=== PATIENT | female | born 1970 | race Caucasian/White ===

== ENCOUNTER 2018-08-31 09:32 | Inpatient (IN) | payer OTHER ==
[~2018-08-31] VITALS: Ht 175.3 cm; Wt 92.2 kg
[~2018-08-31 09:32] MED LIST: ALLO100 PO; CIPR500 PO; CYCL10 PO; Crutch1 EACH MISC; DELTASONE20 MG PO; FURO40 PO; HYDACE5 PO; HYDR1TAB94 PO; IBUP800; IBUP800 PO; LISHYD1012 PO; Norco 5-325 Ta1 EACH PO; OXYACE5T PO; POTCHL10ER PO
[2018-08-31] MEDS ORDERED: GABA600 PO (09:48)
[2018-08-31] MEDS ORDERED: VITAMIN B-121000 MCG PO (09:48)
[2018-08-31] MEDS ORDERED: PANT40 PO (09:50)
[2018-08-31] MEDS ORDERED: Metformin HCl1000 MG PO (09:51)
[2018-08-31] MEDS ORDERED: ATEN25 PO (09:51)
[2018-08-31] MEDS ORDERED: SILD25T PO (09:52)
[2018-08-31] MEDS ORDERED: PROC5 PO (09:53)
[2018-08-31] MEDS ORDERED: ONDA4ODT MM (09:53)
[2018-08-31] MEDS ORDERED: HYDR-86 PO (09:55)
[2018-08-31] MEDS ORDERED: DULO60 PO (09:56)
[2018-08-31] MEDS ORDERED: TOPI100 PO (09:56)
[2018-08-31 11:04] LABS: BASOPHILS ABSOLUTE AUTO 0.07 K/mm3 (0.00-0.23); BASOPHILS PERCENT AUTO 1 % (0-2); EOSINOPHILS ABSOLUTE AUTO 0.23 K/mm3 (0.00-0.68); EOSINOPHILS PERCENT AUTO 2 % (0-6); Hematocrit 47.6 % (33.0-51.0); Hemoglobin 15.9 g/dL (11.5-16.0); IMMATURE GRAN ABSOLUTE AUTO 0.09 K/mm3 (0.00-0.10); IMMATURE GRAN PERCENT AUTO 1 % (0-1); LYMPHOCYTES ABSOLUTE AUTO 2.53 K/mm3 (0.84-5.20); LYMPHOCYTES PERCENT AUTO 21 % (21-46); MONOCYTES ABSOLUTE AUTO 0.65 K/mm3 (0.16-1.47); MONOCYTES PERCENT AUTO 5 % (4-13); Mean Corpuscular HGB 31.8 pg (26.0-34.0); Mean Corpuscular HGB Conc 33.4 g/dL (31.5-36.5); Mean Corpuscular Volume 95 fL (80-100); NEUTROPHILS ABSOLUTE AUTO 8.58 K/mm3 (1.96-9.15); NEUTROPHILS PERCENT AUTO 71 % (41-73); Platelet Count 268 K/mm3 (150-400); RDW Standard Deviation 48.6 fL (35.1-46.3); White Blood Cell Count 12.15 K/mm3 (4.00-11.30)
[2018-08-31 11:24] LABS: Albumin, Blood 3.9 g/dL (3.4-5.0); Bilirubin, Total 0.8 mg/dL (0.1-1.0); Bun/Creatinine Ratio 9.1 (12.0-20.0); Calcium, Blood 9.1 mg/dL (8.5-10.1); Creatinine, Blood 7.04 mg/dL (0.40-1.00); Globulin, Blood 3.9 g/dL (2.2-4.0); Potassium, Blood 4.8 mmol/L (3.5-5.5); Total Protein, Blood 7.8 g/dL (6.4-8.2)
[2018-08-31] MEDS ORDERED: SPIR25 PO (13:13)
--- NOTE | 2018-08-31 15:18 | NUR ---
Patient allowed me to participate in her care on 08/31/18
[2018-08-31] MEDS ORDERED: [UNRECOGNIZED DRUG - OTHER] PO (18:05)
[2018-08-31 20:10] LABS: Appearance, Urine Cloudy (Clear); Blood, Urine 2+ (Neg); Color, Urine Amber (P-Yellow); Glucose Qualitative, Urine Neg (Neg); Ketones, Urine 1+ (Neg); Leukocyte Esterase, Urine 3+ (Neg); Nitrite, Urine Neg (Neg); Protein, Urine 3+ (Neg); Urobilinogen, Urine NORM (Normal)
[2018-08-31 20:13] LABS: Bilirubin, Urine 1+ (Neg)
--- NOTE | 2018-08-31 20:24 | NUR ---
ETYMOLOGY PROFESSOR AT BEDSIDE. US OF BLADDER REVEALS 216 ML. PT ABLE TO VOID 300 ML. POST VOID RESIDUAL IS 0 ML. URINALYSIS SENT TO LAB. PT REPORTS THIS IS THE FIRST VOID X3 DAYS.
[2018-08-31 20:27] LABS: Squamous Epithelial Cells Many /hpf (Few)
[2018-08-31 20:29] LABS: White Blood Cells, Urine 25-50 /hpf (0-5)
[2018-08-31 20:30] LABS: Bacteria Many /hpf
--- NOTE | 2018-08-31 21:58 | NUR ---
HYPOTENSION PT IS HYPOTENSIVE TONIGHT, LAST BP OF 88/55. PLACED CALLED TO HOSPITALIST. HOSPITALIST ORDERS TO CONT TO MONITOR, IF IT CONT TO DROP BOLUS MAY BECOME NECESSARY. PT CURRENTLY RECIEVING NS @ 150 ML/HR. WILL CHECK BP Q2H.
[2018-08-31 22:02] LABS: Adenovirus F 40/41 Not Detected (NOT DETECT); Astrovirus Not Detected (NOT DETECT); Campylobacter Sp Not Detected (NOT DETECT); Cryptosporidium Not Detected (NOT DETECT); Cyclospora Cayetanensis Not Detected (NOT DETECT); E. Coli O157 Not Detected (NOT DETECT); Entamoeba Histolytica Not Detected (NOT DETECT); Enteroaggregative E. coli-EAEC Not Detected (NOT DETECT); Enteropathogenic E. coli-EPEC Not Detected (NOT DETECT); Enterotoxigenic E. coli-ETEC Not Detected (NOT DETECT); Giardia Lamblia Not Detected (NOT DETECT); Norovirus GI/GII Not Detected (NOT DETECT); Plesiomonas Shigelloides Not Detected (NOT DETECT); Rotavirus A Not Detected (NOT DETECT); Salmonella Sp Not Detected (NOT DETECT); Sapovirus Not Detected (NOT DETECT); Shiga Toxin-prod E. coli-STEC Not Detected (NOT DETECT); Shigella/Enteroin E. coli-EIEC Not Detected (NOT DETECT); Vibrio Cholerae Not Detected (NOT DETECT); Vibrio Sp Not Detected (NOT DETECT); Yersinia Enterocolitica Not Detected (NOT DETECT)
[2018-09-01 05:31] LABS: BASOPHILS ABSOLUTE AUTO 0.04 K/mm3 (0.00-0.23); BASOPHILS PERCENT AUTO 1 % (0-2); EOSINOPHILS ABSOLUTE AUTO 0.17 K/mm3 (0.00-0.68); EOSINOPHILS PERCENT AUTO 2 % (0-6); Hemoglobin 12.5 g/dL (11.5-16.0); IMMATURE GRAN ABSOLUTE AUTO 0.06 K/mm3 (0.00-0.10); IMMATURE GRAN PERCENT AUTO 1 % (0-1); LYMPHOCYTES ABSOLUTE AUTO 2.39 K/mm3 (0.84-5.20); LYMPHOCYTES PERCENT AUTO 28 % (21-46); MONOCYTES ABSOLUTE AUTO 0.57 K/mm3 (0.16-1.47); MONOCYTES PERCENT AUTO 7 % (4-13); Mean Corpuscular HGB 31.6 pg (26.0-34.0); Mean Corpuscular HGB Conc 31.3 g/dL (31.5-36.5); Mean Platelet Volume 12.3 fL (9.1-12.4); NEUTROPHILS ABSOLUTE AUTO 5.26 K/mm3 (1.96-9.15); NEUTROPHILS PERCENT AUTO 62 % (41-73); Platelet Count 167 K/mm3 (150-400); RDW Coefficient Variation 14.1 % (11.7-14.2); RDW Standard Deviation 52.6 fL (35.1-46.3); Red Blood Cell Count 3.96 M/mm3 (3.80-5.20); White Blood Cell Count 8.49 K/mm3 (4.00-11.30)
[2018-09-01 05:40] LABS: Mean Corpuscular Volume 101 fL (80-100)
--- NOTE | 2018-09-01 06:34 | NUR ---
SHIFT SUMMARY: PT HAD ONE VOID TONIGHT, SHE STATES THIS IS HER FIRST VOID IN 3 DAYS. US AT BEDSIDE SHOWED BLADDER TO HAVE 216 ML PRIOR TO VOID. POST VOID RESIDUAL 0 ML. URINE DARK YELLOW, FOUL ODOR. URINALYSIS THIS AM SHOWS UTI. PT MEDS CHANGED TO MATCH HOME REGIMEN. STOOL SAMPLE SENT, LOOSE STOOLS C DIFF NEG. PT HYPOTENSIVE, MADE CALL TO HOSPITALIST WHO ORDERED 500 ML BOLUS. BP IMPROVED. NS RUNNING AT 150 ML/HR. WILL CONT TO MONITOR AND PROVIDE CARE UNTIL PRESUMED BY ONCOMING RN.
[2018-09-01 06:42] LABS: Anion Gap 16 mmol/L (6-16); Blood Urea Nitrogen 56 mg/dL (8-24); Bun/Creatinine Ratio 9.8 (12.0-20.0); CO2, Blood 14 mmol/L (21-32); Calcium, Blood 7.3 mg/dL (8.5-10.1); Chloride, Blood 106 mmol/L (98-108); Creatinine, Blood 5.73 mg/dL (0.40-1.00); Glomerular Filtration Rate 8 (60-); Glucose, Blood 91 mg/dL (70-99); Magnesium, Blood 1.5 mg/dL (1.6-2.4); Phosphorus, Blood 6.4 mg/dL (2.5-4.9); Potassium, Blood 4.4 mmol/L (3.5-5.5); Sodium, Blood 136 mmol/L (136-145)
--- NOTE | 2018-09-01 17:25 | NUR ---
SUMMARY PT IS A/O X4, STATE CONTINUING WEAKNESS/FATIGUE, NAUSEA. HAVE GIVEN IV ZOFRAN X 2 TODAY FOR NAUSEA RELIEF. SHE HAS BEEN ABLE TO EAT SM AMTS OF MEALS. DX ARF, DR MONTOYA MANAGING, GFR 8. IVF CHANGED TO 1/2 NS WITH BICARB @ 125. BP LOW THIS AM 105/69, THIS AFTERNOON 89/52. DR CUI NOTIFIED, ORDER INCREASE IVF TO 150/HR. DR MONTOYA SPOKE WITH PT DR Alicea [facility] WHO IS MANAGING PULM HTN, AFTER [facility]. DR CUI ORDER DAILY REPORTS FAXED TO DR Alicea [facility]. MG LOW TODAY, SUPPLEMENTS GIVEN. DIARRHEA CONTINUES. PT HAS HAD 2 URINE VOIDS, 1 UNMEASURED THE OTHER APPROX 600 ML. PLEASANT/COOPERATIVE AFFECT, SUPPORTIVE/APPRECIATIVE FAMILY.
--- NOTE | 2018-09-01 23:53 | NUR ---
PAIN PT C/O PAIN IN THE WRISTS AND JOINTS. PT STATES IT IS ACHEY AND HAS NEVER HAPPENED BEFORE. 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 TREATED 1X c PRN 7.5 MG HYDROCODONE. PT STILL STATES SHE IS WORRIED BUT WILLING TO SEE IF THE PAIN MED WILL HELP. WILL CONT TO MONITOR.
[2018-09-02 05:26] LABS: BASOPHILS ABSOLUTE AUTO 0.06 K/mm3 (0.00-0.23); BASOPHILS PERCENT AUTO 1 % (0-2); EOSINOPHILS ABSOLUTE AUTO 0.18 K/mm3 (0.00-0.68); EOSINOPHILS PERCENT AUTO 2 % (0-6); Hematocrit 40.3 % (33.0-51.0); IMMATURE GRAN ABSOLUTE AUTO 0.13 K/mm3 (0.00-0.10); IMMATURE GRAN PERCENT AUTO 1 % (0-1); LYMPHOCYTES ABSOLUTE AUTO 1.02 K/mm3 (0.84-5.20); LYMPHOCYTES PERCENT AUTO 10 % (21-46); MONOCYTES ABSOLUTE AUTO 0.71 K/mm3 (0.16-1.47); MONOCYTES PERCENT AUTO 7 % (4-13); Mean Corpuscular HGB 31.7 pg (26.0-34.0); Mean Corpuscular HGB Conc 32.3 g/dL (31.5-36.5); Mean Corpuscular Volume 98 fL (80-100); Mean Platelet Volume 11.9 fL (9.1-12.4); NEUTROPHILS ABSOLUTE AUTO 8.58 K/mm3 (1.96-9.15); NEUTROPHILS PERCENT AUTO 80 % (41-73); Platelet Count 159 K/mm3 (150-400); RDW Coefficient Variation 14.1 % (11.7-14.2); RDW Standard Deviation 50.8 fL (35.1-46.3); White Blood Cell Count 10.68 K/mm3 (4.00-11.30)
[2018-09-02 05:47] LABS: Albumin, Blood 2.9 g/dL (3.4-5.0); Anion Gap 12 mmol/L (6-16); Blood Urea Nitrogen 50 mg/dL (8-24); Bun/Creatinine Ratio 10.7 (12.0-20.0); CO2, Blood 21 mmol/L (21-32); Calcium, Blood 7.3 mg/dL (8.5-10.1); Chloride, Blood 102 mmol/L (98-108); Creatinine, Blood 4.69 mg/dL (0.40-1.00); Glomerular Filtration Rate 11 (60-); Glucose, Blood 131 mg/dL (70-99); Potassium, Blood 3.5 mmol/L (3.5-5.5); Sodium, Blood 135 mmol/L (136-145)
--- NOTE | 2018-09-02 06:32 | NUR ---
SHIFT SUMMARY: NO ACUTE CHANGES THIS SHIFT. PT IS A&O X 4, 1 PERS ASSIST TO BSC, CALL LIGHT APPROP. VOIDS 2X THIS SHIFT. PT HAS 1 UNMEASURED VOID, BLADDER SCAN UNREMARKABLE. C/O OF PAIN IN WRIST AND JOINTS THAT IS RESOLVED BY PRN HYDROCODONE. WILL CONT TO MONITOR AND PROVIDE CARE UNTIL PRESUMED BY ONCOMING RN.
--- NOTE | 2018-09-02 17:05 | NUR ---
SHE HAS RECEIVED FENTANYL X1 AND NORCO X1 TODAY FOR THE PAIN IN HER FEET, WRISTS, AND KNEES. SHE IS UP TO THE BSC WITH 1 ASSIST. SHE HAS HAD 1 LOOSE STOOL TODAY. HCO3 IV IS STILL INFUSING BUT HAD ME TURN IT DOWN TO 125ML/HR AT 9 AM THIS MORNING WHEN SHE ROUNDED ON THE PATIENT. SBP'S HAVE RANGED FROM 96 TO 87 TODAY. TELE IS NSR. PO KCL ELIXER GIVEN FOR LOW POTASSIUM LEVEL. NO NEW COMPLAINTS.
[2018-09-03 05:56] LABS: BASOPHILS ABSOLUTE AUTO 0.03 K/mm3 (0.00-0.23); BASOPHILS PERCENT AUTO 0 % (0-2); EOSINOPHILS ABSOLUTE AUTO 0.15 K/mm3 (0.00-0.68); EOSINOPHILS PERCENT AUTO 2 % (0-6); Hematocrit 32.1 % (33.0-51.0); Hemoglobin 10.3 g/dL (11.5-16.0); IMMATURE GRAN ABSOLUTE AUTO 0.04 K/mm3 (0.00-0.10); IMMATURE GRAN PERCENT AUTO 1 % (0-1); LYMPHOCYTES ABSOLUTE AUTO 1.03 K/mm3 (0.84-5.20); LYMPHOCYTES PERCENT AUTO 14 % (21-46); MONOCYTES ABSOLUTE AUTO 0.53 K/mm3 (0.16-1.47); MONOCYTES PERCENT AUTO 7 % (4-13); Mean Corpuscular HGB 31.5 pg (26.0-34.0); Mean Corpuscular HGB Conc 32.1 g/dL (31.5-36.5); Mean Corpuscular Volume 98 fL (80-100); Mean Platelet Volume 11.9 fL (9.1-12.4); NEUTROPHILS ABSOLUTE AUTO 5.73 K/mm3 (1.96-9.15); NEUTROPHILS PERCENT AUTO 76 % (41-73); Platelet Count 111 K/mm3 (150-400); RDW Coefficient Variation 14.3 % (11.7-14.2); RDW Standard Deviation 50.5 fL (35.1-46.3); Red Blood Cell Count 3.27 M/mm3 (3.80-5.20); White Blood Cell Count 7.51 K/mm3 (4.00-11.30)
[2018-09-03 06:09] LABS: Albumin, Blood 2.6 g/dL (3.4-5.0); Anion Gap 11 mmol/L (6-16); Blood Urea Nitrogen 35 mg/dL (8-24); CO2, Blood 21 mmol/L (21-32); Calcium, Blood 6.8 mg/dL (8.5-10.1); Chloride, Blood 104 mmol/L (98-108); Glomerular Filtration Rate 20 (60-); Glucose, Blood 114 mg/dL (70-99); Phosphorus, Blood 3.1 mg/dL (2.5-4.9); Potassium, Blood 3.9 mmol/L (3.5-5.5); Sodium, Blood 136 mmol/L (136-145)
--- NOTE | 2018-09-03 06:35 | NUR ---
SHIFT SUMMARY: NO ACUTE CHANGES TONIGHT. NEW IV PLACED; 20 G IN R WRIST. NA+ BICARB RUNNING AT 125 ML/HR PER ORDERS. PT C/O OF WRIST AND JOINT PAIN; ADMINISTERED PRN NORCO. NO COV INDICATED FOR INSULIN. WILL CONT TO MONITOR AND PROVIDE CARE UNTIL PRESUMED BY ONCOMING RN.
--- NOTE | 2018-09-03 17:10 | NUR ---
PT AOX4 AND COOPERATIVE OF CARE. PT HAS HAD TWO VOIDS TODAY AND HER GFR CONTINUES TO IMPROVE. PT 1 PERSON ASSIST TO BEDSIDE COMODE.NS FLUIDS CONTINUED AT 50ML PER HR. TREATED PAIN OF WRISTS AND JOINTS PER EMAR. PLEASANT NO DISTRESS NOTED.
--- NOTE | 2018-09-03 18:16 | NUR ---
PT HAD A BOUT OF NAUSEA AND VOMITING. PCU FINISHER PLATE CALLED PT'S HR WAS UP TO 132. IMMEDIATELY TREATED WITH REGLAN. PT CALMED DOWN AND STOPPED GETTING SICK. CALLED PCU TECH AND PT'S HR WAS 121 15 MIN AFTER REGLAN DOSE. PT IS SLEEPING AT THIS TIME WITH CONITUE TO MONITOR.
--- NOTE | 2018-09-03 18:33 | NUR ---
PCU NOTFIED THIS ASSISTANT SOFTBALL COACH PT CONTINUES TO HAVE FAST HR REPORTS AT [address] CHRISTENSEN WAS NOTIFIED AND HAS REQUESTED PT TO BE MONITORED, NO CHANGES AT THIS TIME.
--- NOTE | 2018-09-04 06:49 | NUR ---
09/04/18 0640 PT AWAKE AND WATCHING TV. SPENT THE NIGHT. SLEPT ON AND OFF AND WAS MEDICATED SEVERAL TIMES FOR DISCOMFORT PER MAR. VITALS ARE STABLE AND HEART MONITOR STABLE WITH HEART RATE IN 90-LOW 100'S. DENIES ANY CHEST DISCOMFORT OR NAUSEA THIS SHIFT
[2018-09-04 08:29] LABS: BASOPHILS ABSOLUTE AUTO 0.03 K/mm3 (0.00-0.23); BASOPHILS PERCENT AUTO 0 % (0-2); EOSINOPHILS ABSOLUTE AUTO 0.16 K/mm3 (0.00-0.68); EOSINOPHILS PERCENT AUTO 2 % (0-6); Hematocrit 33.2 % (33.0-51.0); Hemoglobin 10.9 g/dL (11.5-16.0); IMMATURE GRAN ABSOLUTE AUTO 0.05 K/mm3 (0.00-0.10); IMMATURE GRAN PERCENT AUTO 1 % (0-1); LYMPHOCYTES ABSOLUTE AUTO 1.44 K/mm3 (0.84-5.20); LYMPHOCYTES PERCENT AUTO 20 % (21-46); MONOCYTES ABSOLUTE AUTO 0.54 K/mm3 (0.16-1.47); MONOCYTES PERCENT AUTO 8 % (4-13); Mean Corpuscular HGB 31.5 pg (26.0-34.0); Mean Corpuscular HGB Conc 32.8 g/dL (31.5-36.5); Mean Corpuscular Volume 96 fL (80-100); Mean Platelet Volume 12.6 fL (9.1-12.4); NEUTROPHILS ABSOLUTE AUTO 4.87 K/mm3 (1.96-9.15); NEUTROPHILS PERCENT AUTO 69 % (41-73); Platelet Count 113 K/mm3 (150-400); RDW Coefficient Variation 14.3 % (11.7-14.2); RDW Standard Deviation 50.2 fL (35.1-46.3); Red Blood Cell Count 3.46 M/mm3 (3.80-5.20); White Blood Cell Count 7.09 K/mm3 (4.00-11.30)
[2018-09-04 08:43] LABS: Bun/Creatinine Ratio 13.3 (12.0-20.0); Calcium, Blood 6.9 mg/dL (8.5-10.1); Creatinine, Blood 2.18 mg/dL (0.40-1.00); Potassium, Blood 3.2 mmol/L (3.5-5.5)
[2018-09-04 08:47] LABS: Magnesium, Blood 1.1 mg/dL (1.6-2.4)
[2018-09-04] MEDS ORDERED: MAGOXI400 PO (14:32)
[2018-09-04] MEDS ORDERED: SACC250C PO (14:33)
--- NOTE | 2018-09-04 15:00 | NUR ---
PT AOX4 AND COOPERATIVE OF ALL CARE. PT DOING WELL TODAY. DISCHARGED AT 1455 WITH MOTHER TO TRANSPORT HOME. ALL PAPERS REVIEWED AND EDUCATIONAL MATERIAL SENT WITH PT. PERSONAL BELONGINGS COLLECTED AND WITH PT. NO DISTRESS NOTED AID ESCORTED PT VIA WHEEL CHAIR.
[2018-09-10 01:10] LABS: CK-BB 0 % (0); CK-MB 0 % (0-3); CK-MM 100 % (97-100); MACRO TYPE 1 0 % (Not Observed); MACRO TYPE 2 0 % (Not Observed)
== END 2018-09-04 14:55 | disposition home or self-care (01) | DRG 682 ==
LOC: ER 09:32 → MEDS 09:56
PROVIDERS: Emergency Medicine; Hospitalist; Internal Medicine; ADMIT Family Medicine
DX: N17.9 Acute kidney failure, unspecified (principal); E43 Unspecified severe protein-calorie malnutrition; E87.1 Hypo-osmolality and hyponatremia; E87.2 Acidosis; I27.20 Pulmonary hypertension, unspecified; I10 Essential (primary) hypertension; E86.0 Dehydration; K52.9 Noninfective gastroenteritis and colitis, unspecified; F32.9 Major depressive disorder, single episode, unspecified; F41.9 Anxiety disorder, unspecified; N18.3 Chronic kidney disease, stage 3 (moderate); E11.40 Type 2 diabetes mellitus with diabetic neuropathy, unspecified; E11.22 Type 2 diabetes mellitus with diabetic chronic kidney disease; K21.9 Gastro-esophageal reflux disease without esophagitis; M10.9 Gout, unspecified; E83.42 Hypomagnesemia; Z88.2 Allergy status to sulfonamides; Z88.8 Allergy status to other drugs, medicaments and biological substances; Z79.84 Long term (current) use of oral hypoglycemic drugs; Z79.899 Other long term (current) drug therapy; Z87.891 Personal history of nicotine dependence
CPT/HCPCS: 36415; 76770; 80048; 80053; 80069; 81001; 82550; 82552; 82947; 83605; 83690; 83735; 85025; 87086; 87507; 93005; 93010; 96360; 96361; 96372; 96375; 96376; 99285-25; C9113; G0378; J1650; J2405; J2765; J3010; J3475; J7030; J7040

== ENCOUNTER 2019-10-01 17:17 | Emergency (ER) | payer OTHER ==
[~2019-10-01] VITALS: Ht 172.7 cm; Wt 101.6 kg
[~2019-10-01 17:17] MED LIST changes: +ATEN25 PO; +DULO60 PO; +GABA300 PO; +HYDR-86 PO; +MAGOXI400 PO; +Metformin HCl1000 MG PO; +ONDA4ODT MM; +PANT40 PO; +PROC5 PO; +SACC250C PO; +SILD25T PO; +SPIR25 PO; +TOPI100 PO; +VITAMIN B-121000 MCG PO; +[UNRECOGNIZED DRUG - OTHER] PO
[2019-10-01 18:02] LABS: Influenza A Negative (NEGATIVE); Influenza B Negative (NEGATIVE)
[2019-10-01 18:47] LABS: BASOPHILS ABSOLUTE AUTO 0.07 K/mm3 (0.00-0.23); BASOPHILS PERCENT AUTO 1 % (0-2); EOSINOPHILS ABSOLUTE AUTO 0.51 K/mm3 (0.00-0.68); EOSINOPHILS PERCENT AUTO 4 % (0-6); Hematocrit 42.9 % (33.0-51.0); Hemoglobin 13.5 g/dL (11.5-16.0); IMMATURE GRAN ABSOLUTE AUTO 0.07 K/mm3 (0.00-0.10); IMMATURE GRAN PERCENT AUTO 1 % (0-1); LYMPHOCYTES ABSOLUTE AUTO 1.82 K/mm3 (0.84-5.20); LYMPHOCYTES PERCENT AUTO 16 % (21-46); MONOCYTES ABSOLUTE AUTO 0.66 K/mm3 (0.16-1.47); MONOCYTES PERCENT AUTO 6 % (4-13); Mean Corpuscular HGB 30.4 pg (26.0-34.0); Mean Corpuscular HGB Conc 31.5 g/dL (31.5-36.5); Mean Corpuscular Volume 97 fL (80-100); Mean Platelet Volume 10.7 fL (9.1-12.4); NEUTROPHILS ABSOLUTE AUTO 8.46 K/mm3 (1.96-9.15); NEUTROPHILS PERCENT AUTO 73 % (41-73); Platelet Count 195 K/mm3 (150-400); RDW Standard Deviation 53.3 fL (35.1-46.3); Red Blood Cell Count 4.44 M/mm3 (3.80-5.20); White Blood Cell Count 11.59 K/mm3 (4.00-11.30)
[2019-10-01 19:13] LABS: Alanine Aminotransfer (ALT/SGP 12 U/L (12-78); Albumin, Blood 3.6 g/dL (3.4-5.0); Alk Phos 108 U/L (50-136); Anion Gap 6 mmol/L (6-16); Aspartate Aminotrans (AST/SGOT 12 U/L (12-37); Bilirubin, Total 0.5 mg/dL (0.1-1.0); Blood Urea Nitrogen 14 mg/dL (8-24); Bun/Creatinine Ratio 15.7 (12.0-20.0); CO2, Blood 27 mmol/L (21-32); Calcium, Blood 8.8 mg/dL (8.5-10.1); Chloride, Blood 105 mmol/L (98-108); Creatinine, Blood 0.89 mg/dL (0.40-1.00); Globulin, Blood 3.5 g/dL (2.2-4.0); Glomerular Filtration Rate >60 (60-); Glucose, Blood 181 mg/dL (70-99); Potassium, Blood 4.2 mmol/L (3.5-5.5); Sodium, Blood 138 mmol/L (136-145); Total Protein, Blood 7.1 g/dL (6.4-8.2); Troponin I <0.015 ng/mL (0.000-0.040)
[2019-10-01] MEDS ORDERED: ORENITRAM PO (19:36)
[2019-10-01] MEDS ORDERED: FERSU300 PO (19:40)
[2019-10-01] MEDS ORDERED: OPSUMIT10 MG PO (19:41)
[2019-10-01] MEDS ORDERED: METF500 PO (19:41)
[2019-10-01] MEDS ORDERED: OXYC10TA19 PO (19:42)
[2019-10-01] MEDS ORDERED: ALBU90OI INH (19:42)
[2019-10-01] MEDS ORDERED: POTA10T PO (19:42)
[2019-10-01] MEDS ORDERED: Vitamin D2000 UNIT PO (19:43)
[2019-10-01] MEDS ORDERED: GUAI600T33 PO (21:17)
[2019-10-01] MEDS ORDERED: Vibramycin100 MG PO (21:17)
== END 2019-10-01 23:22 | disposition home or self-care (01) ==
LOC: ER 17:17
PROVIDERS: Physician Assistant
DX: J20.9 Acute bronchitis, unspecified (principal); E11.22 Type 2 diabetes mellitus with diabetic chronic kidney disease; E11.40 Type 2 diabetes mellitus with diabetic neuropathy, unspecified; I12.9 Hypertensive chronic kidney disease with stage 1 through stage 4 chronic kidney disease, or unspecified chronic kidney disease; N18.3 Chronic kidney disease, stage 3 (moderate); I27.20 Pulmonary hypertension, unspecified; F32.9 Major depressive disorder, single episode, unspecified; F41.9 Anxiety disorder, unspecified; K21.9 Gastro-esophageal reflux disease without esophagitis; M10.9 Gout, unspecified; Z87.891 Personal history of nicotine dependence; Z88.2 Allergy status to sulfonamides; Z88.6 Allergy status to analgesic agent; Z88.8 Allergy status to other drugs, medicaments and biological substances
CPT/HCPCS: 36415; 71046; 71250; 80053; 83605; 83880; 84484; 85025; 87804; 93005; 93010; 96361; 96365; 96366; 99284-25; J1956; J7030

== ENCOUNTER 2020-03-08 20:32 | Inpatient (IN) | payer OTHER ==
[~2020-03-08] VITALS: Ht 175.3 cm; Wt 98.6 kg
[~2020-03-08 20:32] MED LIST changes: +ACET325 PO; +ALBU90OI INH; +AMOCLA875 PO; +AMOX500 PO; +Acetic Acid15 ML BOTHEARS; +Carafate1 GM/10 ML PO; +FERSU300 PO; +FUROSEMIDE40 MG PO; -GABA300 PO; +GUAI600T33 PO; +MAGNESIUM OXID500 MG PO; +METF500 PO; +METFORMIN HCL1000 M2 PO; +MIRALAX17 GM PO; +NEURONTIN600 MG PO; +OPSUMIT10 MG PO; +ORENITRAM PO; +OXYC10TA19 PO; +POTA10T PO; +PROBIOTIC PO; +SENN187 PO; +VELETRI IV; +Vibramycin100 MG PO; +Vitamin D2000 UNIT PO; +[UNRECOGNIZED DRUG - CODE] PO; +[UNRECOGNIZED DRUG - OTHER] PO
[2020-03-08 22:18] LABS: BASOPHILS ABSOLUTE AUTO 0.04 K/mm3 (0.00-0.23); BASOPHILS PERCENT AUTO 1 % (0-2); EOSINOPHILS ABSOLUTE AUTO 0.18 K/mm3 (0.00-0.68); EOSINOPHILS PERCENT AUTO 3 % (0-6); Hematocrit 26.9 % (33.0-51.0); Hemoglobin 7.6 g/dL (11.5-16.0); IMMATURE GRAN ABSOLUTE AUTO 0.07 K/mm3 (0.00-0.10); IMMATURE GRAN PERCENT AUTO 1 % (0-1); LYMPHOCYTES ABSOLUTE AUTO 1.01 K/mm3 (0.84-5.20); LYMPHOCYTES PERCENT AUTO 16 % (21-46); MONOCYTES ABSOLUTE AUTO 0.34 K/mm3 (0.16-1.47); MONOCYTES PERCENT AUTO 5 % (4-13); Mean Corpuscular HGB Conc 28.3 g/dL (31.5-36.5); Mean Corpuscular Volume 82 fL (80-100); Mean Platelet Volume 11.1 fL (9.1-12.4); NEUTROPHILS ABSOLUTE AUTO 4.67 K/mm3 (1.96-9.15); NEUTROPHILS PERCENT AUTO 74 % (41-73); Platelet Count 97 K/mm3 (150-400); RDW Coefficient Variation 18.6 % (11.7-14.2); RDW Standard Deviation 55.1 fL (35.1-46.3); White Blood Cell Count 6.31 K/mm3 (4.00-11.30)
[2020-03-08 22:34] LABS: Albumin, Blood 3.1 g/dL (3.4-5.0); Albumin/Globulin Ratio 0.9 (0.8-1.8); Bilirubin, Total 0.7 mg/dL (0.1-1.0); Bun/Creatinine Ratio 6.6 (12.0-20.0); Calcium, Blood 8.5 mg/dL (8.5-10.1); Creatinine, Blood 1.06 mg/dL (0.40-1.00); Globulin, Blood 3.4 g/dL (2.2-4.0); Potassium, Blood 3.8 mmol/L (3.5-5.5); Total Protein, Blood 6.5 g/dL (6.4-8.2)
[2020-03-09 09:57] LABS: BASOPHILS ABSOLUTE AUTO 0.04 K/mm3 (0.00-0.23); BASOPHILS PERCENT AUTO 1 % (0-2); EOSINOPHILS ABSOLUTE AUTO 0.19 K/mm3 (0.00-0.68); EOSINOPHILS PERCENT AUTO 3 % (0-6); Hematocrit 26.2 % (33.0-51.0); Hemoglobin 7.5 g/dL (11.5-16.0); IMMATURE GRAN ABSOLUTE AUTO 0.05 K/mm3 (0.00-0.10); IMMATURE GRAN PERCENT AUTO 1 % (0-1); LYMPHOCYTES ABSOLUTE AUTO 0.94 K/mm3 (0.84-5.20); LYMPHOCYTES PERCENT AUTO 16 % (21-46); MONOCYTES ABSOLUTE AUTO 0.42 K/mm3 (0.16-1.47); MONOCYTES PERCENT AUTO 7 % (4-13); Mean Corpuscular HGB 23.4 pg (26.0-34.0); Mean Corpuscular HGB Conc 28.6 g/dL (31.5-36.5); Mean Corpuscular Volume 82 fL (80-100); Mean Platelet Volume 11.2 fL (9.1-12.4); NEUTROPHILS ABSOLUTE AUTO 4.25 K/mm3 (1.96-9.15); NEUTROPHILS PERCENT AUTO 72 % (41-73); Platelet Count 101 K/mm3 (150-400); RDW Coefficient Variation 18.6 % (11.7-14.2); Red Blood Cell Count 3.21 M/mm3 (3.80-5.20); White Blood Cell Count 5.89 K/mm3 (4.00-11.30)
[2020-03-09 10:28] LABS: Alanine Aminotransfer (ALT/SGP <6 U/L (12-78); Albumin, Blood 2.8 g/dL (3.4-5.0); Albumin/Globulin Ratio 0.9 (0.8-1.8); Alk Phos 104 U/L (50-136); Anion Gap 5 mmol/L (6-16); Aspartate Aminotrans (AST/SGOT 8 U/L (12-37); Bilirubin, Total 0.9 mg/dL (0.1-1.0); Blood Urea Nitrogen 7 mg/dL (8-24); Bun/Creatinine Ratio 6.4 (12.0-20.0); CO2, Blood 30 mmol/L (21-32); Calcium, Blood 8.5 mg/dL (8.5-10.1); Chloride, Blood 104 mmol/L (98-108); Creatinine, Blood 1.09 mg/dL (0.40-1.00); Globulin, Blood 3.2 g/dL (2.2-4.0); Glomerular Filtration Rate 57 (60-); Glucose, Blood 117 mg/dL (70-99); Potassium, Blood 3.6 mmol/L (3.5-5.5); Sodium, Blood 139 mmol/L (136-145)
--- NOTE | 2020-03-09 10:46 | NUR ---
DR GALLEGOS HERE EARLIER TO SEE PT, DISCUSSED PT'S STATUS.
--- NOTE | 2020-03-09 15:58 | NUR ---
SHIFT SUMMARY PT EATING AND DRINKING, VOIDING. REPORTS PASSING GAS. PT BEEN UP WITH STEADY GAIT. PT HOME MED VERIFIED AND PLACED IN DRAWER OUTSIDE ROOM, SIGN OUTSIDE OF ROOM AND ON CHART. PT BEEN MED ORDERED. PT BEEN ASSISTED WITH ADL'S PRN. FAMILY IN ROOM EARLIER TODAY. PT RESTING QUIETLY AT THIS TIME.
--- NOTE | 2020-03-09 21:49 | NUR ---
PATIENT'S FACE IS RED FROM UNDER HER EYES TO ABOUT 1 INCH ABOVE HER JAW LINE. SHE HAS SWELLING FROM HER FORHEAD TO HER NECK. sHE STATES THAT SHE THINKS THAT IT IS BETTER THIS EVENING. PATIENT HAS AN INFUSION PUMP WITH MEDICATION VELETRI INFUSING 40 NANOGRAMS/HOUR THROUGH A LINE INCERTED IN HER LEFT CHEST WALL. tHIS MEDICATION TREATES HER PULMONARY ARTERY HYPERTENTION. CALL LIGHT IN PLACE.
--- NOTE | 2020-03-10 04:21 | NUR ---
Patient is awake and alert, she stated that she did get a few hours of sleep last night. No difficulty swallowing or breathing. She is able to get OOB to BR with SB assist. Complains of pain in her face that is not severe enough for pain medication. Call light in reach, no acute changes.
[2020-03-10 04:53] LABS: BASOPHILS ABSOLUTE AUTO 0.05 K/mm3 (0.00-0.23); BASOPHILS PERCENT AUTO 1 % (0-2); EOSINOPHILS ABSOLUTE AUTO 0.24 K/mm3 (0.00-0.68); EOSINOPHILS PERCENT AUTO 4 % (0-6); Hematocrit 26.6 % (33.0-51.0); Hemoglobin 7.4 g/dL (11.5-16.0); IMMATURE GRAN ABSOLUTE AUTO 0.06 K/mm3 (0.00-0.10); IMMATURE GRAN PERCENT AUTO 1 % (0-1); LYMPHOCYTES PERCENT AUTO 22 % (21-46); MONOCYTES ABSOLUTE AUTO 0.37 K/mm3 (0.16-1.47); MONOCYTES PERCENT AUTO 6 % (4-13); Mean Corpuscular HGB 23.1 pg (26.0-34.0); Mean Corpuscular HGB Conc 27.8 g/dL (31.5-36.5); Mean Corpuscular Volume 83 fL (80-100); NEUTROPHILS ABSOLUTE AUTO 3.88 K/mm3 (1.96-9.15); NEUTROPHILS PERCENT AUTO 66 % (41-73); NRBC ABSOLUTE 0.02 K/mm3 (0.00-0.02); NRBC Auto 0.3 /100 WBC (0.0-0.2); Platelet Count 100 K/mm3 (150-400); RDW Coefficient Variation 18.7 % (11.7-14.2); RDW Standard Deviation 56.3 fL (35.1-46.3)
[2020-03-10 05:09] LABS: Creatinine, Blood 1.12 mg/dL (0.40-1.00); Potassium, Blood 3.6 mmol/L (3.5-5.5)
[2020-03-10 05:12] LABS: Percent Saturation 9.5 % (15.0-50.0)
[2020-03-10 05:31] LABS: Mean Platelet Volume 11.1 fL (9.1-12.4)
--- NOTE | 2020-03-10 09:42 | NUR ---
PT REPORTS DR GALLEGOS BEEN TO SEE PT RECENTLY. SEE ORDERS.
--- NOTE | 2020-03-10 15:32 | NUR ---
SHIFT SUMMARY PT EATING AND DRINKING, VOIDING. HAD BM TODAY. PT BEEN ASSISTED WITH ADL'S PRN. PT BEEN MED ORDERED. PT BEEN UP IND. WITH STEADY GAIT.
--- NOTE | 2020-03-10 15:48 | NUR ---
OTHER RN Alice. GIVEN REPORT AND IS ASSUMING CARE AT THIS TIME.
[2020-03-11 04:45] LABS: Hematocrit 26.3 % (33.0-51.0); Hemoglobin 7.3 g/dL (11.5-16.0); Mean Corpuscular HGB 23.1 pg (26.0-34.0); Mean Corpuscular HGB Conc 27.8 g/dL (31.5-36.5); Mean Corpuscular Volume 83 fL (80-100); Mean Platelet Volume 11.4 fL (9.1-12.4); Platelet Count 105 K/mm3 (150-400); RDW Coefficient Variation 18.5 % (11.7-14.2); RDW Standard Deviation 55.9 fL (35.1-46.3); Red Blood Cell Count 3.16 M/mm3 (3.80-5.20)
--- NOTE | 2020-03-11 05:09 | NUR ---
SHIFT SUMMARY PT RESTED WELL T/O NIGHT. AAOX4. FACIAL SWELLING + REDNESS DECREASED THIS SHIFT. NEW IV PLACED THIS SHIFT. GOOD PO INTAKE + OUTPUT. INDEPENDENT IN ROOM. NO ACUTE CHANGES OVER NIGHT IN CARE. PT CURRENTLY RESTING IN BED WITH CALL LIGHT IN REACH.
--- NOTE | 2020-03-11 18:15 | NUR ---
SHIFT SUMMARY PT IS HOSPITAL DAY 2 FOR FACIAL CELLULITIS. SHE HAS REDNESS AND SWELLING IN HER CHEECKS, CHIN, AND EYES. PT IS ABLE TO SWALLOW AND SPEAK WITHOUT DIFFCULTY. PT HAS CHRONIC AND ACUTE PAIN; PAIN HAS BEEN MANAGED WITH HOME DOSE OF OXYCODONE. BLOOD SUGARS HAVE BEEN MANAGED T/O THE DAY, NO COVERAGE HAS BEEN REQUIRED. PT HAS MANAGED HER VELERI PUMP INDEPENDENTLY. PT IS INDEPENDENT IN THE ROOM. VSS. WILL MONITOR UNTIL REPORT TO ONCOMING RN.
[2020-03-12 05:12] LABS: Hematocrit 26.8 % (33.0-51.0); Hemoglobin 7.3 g/dL (11.5-16.0); Mean Corpuscular HGB Conc 27.2 g/dL (31.5-36.5); Mean Corpuscular Volume 85 fL (80-100); Mean Platelet Volume 11.9 fL (9.1-12.4); Platelet Count 98 K/mm3 (150-400); RDW Standard Deviation 57.3 fL (35.1-46.3); Red Blood Cell Count 3.17 M/mm3 (3.80-5.20)
--- NOTE | 2020-03-12 06:36 | NUR ---
PT HAD NO ACUTE CHANGES T/O NIGHT. HR REMAINS TACHY LOW 100'S; PT DENIES CP/PRESSURE/SOB. PT FEELS SWELLING AROUND EYES SLIGHTLY IMPROVED THIS AM. PT CONT TO C/O NASAL AND EAR CONGESTION W/NO DRNG. PT DENIES DIZZINESS OR VISUAL DISTURBANCES, IS SWALLOWING W/O DIFFICULTY. PT JACQUELINE REG PO, NO N/V. PT IS INDEP IN ROOM, IS USING CALL LIGHT FOR ASSISTANCE. IV AT TKO, ABX CONT PER ORDERS. WILL CONT TO MONITOR UNTIL REP GIVEN TO ONCOMING RN.
--- NOTE | 2020-03-12 18:03 | NUR ---
SHIFT SUMMARY PAIN HAS BEEN MANAGED WITH OXYCODONE THIS SHIFT. FACIAL SWELLING AND REDNESS APPEARS TO BE DECREASING. PT IS INDEPENDENT IN ROOM. VSS. WILL MONITOR UNTIL REPORT TO ONCOMING RN.
--- NOTE | 2020-03-13 04:54 | NUR ---
REDNESS AND SWELLING AROUND EYES APPEARS TO BE DECREASING, NO SIG CHANGE IN REDNESS AND SWELLING ACCROSS CHEEKS, FLAKING ON NOSE. PT REP NO CHANGES IN NASAL OR EAR CONGESTION, REP NO DRNG. PT DENIES DIZZINESS/VISUAL OR SWALLOWING DIFFICULTIES. BLE PAIN MGD PER EMAR, PT DID REQ BREAKTHROUGH PAIN MED X1. PT INDEP IN ROOM, ABX CONT PER ORDERS.
[2020-03-13 04:58] LABS: Hematocrit 28.1 % (33.0-51.0); Hemoglobin 7.7 g/dL (11.5-16.0); Mean Corpuscular HGB 23.3 pg (26.0-34.0); Mean Corpuscular HGB Conc 27.4 g/dL (31.5-36.5); Mean Corpuscular Volume 85 fL (80-100); RDW Coefficient Variation 19.7 % (11.7-14.2); RDW Standard Deviation 58.3 fL (35.1-46.3); White Blood Cell Count 5.57 K/mm3 (4.00-11.30)
[2020-03-13 06:01] LABS: Mean Platelet Volume 10.8 fL (9.1-12.4); Platelet Count 96 K/mm3 (150-400)
--- NOTE | 2020-03-13 09:47 | NUR ---
PT HAS IMPLANTED PORT TO RIGHT UPPER CHEST FOR HOME IV INFUSION, SITE WITH DRESSING IN PLACE, NO PAIN, REDNESS OR SWELLING AT SITE
--- NOTE | 2020-03-13 17:32 | NUR ---
SUMMARY PT REPORTS PAIN, REDNESS AND SWELLING TO FACIAL AREA HAS IMPROVED SINCE YESTERDAY. BILAT LEG PAIN DUE TO NEUROPATHY PT REPORTS HER PAIN IS AT HER BASELINE. PT MANAGES OWN IV VELETRI. PT HOPING TO DISCHARGE TO HOME TOMORROW AFTER IV IRON INFUSION
[2020-03-14 04:21] LABS: Hematocrit 26.5 % (33.0-51.0); Hemoglobin 7.2 g/dL (11.5-16.0)
--- NOTE | 2020-03-14 04:53 | NUR ---
PT DID WELL DURING NIGHT. PT DID NEED A COUPLE DOSES OF FENT FOR BREAKTHROUGH PAIN, R/T HER CHRONIC PAIN. FACE SWELLING AND REDNESS HAVE IMPROVED. PLAN FOR ANOTHER IV DOSE OF FERRLECIT AND DC HOME. PT IS INDEPENDENT IN ROOM DENIES ANY NEEDS AT THIS TIME. CALL LIGHT IN REACH.
[2020-03-14] MEDS ORDERED: DOXY100 PO (09:46)
--- NOTE | 2020-03-14 11:08 | NUR ---
DISCHARGE NOTE PATIENT DISCHARGED TO HOME. PATIENT ALERT AND ORIENTED THROUGHOUT THIS SHIFT. PATIENT INDEPENDENT IN THE ROOM. PATIENT'S S/O IN THE ROOM PRIOR TO DISCHARGE. PATIENT DISCHARGED ON ANTIBIOTICS TO RESOLVE INFECTION. PATIENT RECEIVED IV IRON THIS AM FOR CHRONIC ANEMIA. PATIENT PROVIDED WITH DISCHARGE AND MEDICATION INFORMATION. PATIENT STATES NO QUESTIONS AT THIS TIME. IV REMOVED PRIOR TO DISCHARGE. PATIENT INDEPENDENT TO THE WHEELCHAIR THEN FROM WHEELCHAIR TO THE VEHICLE.
== END 2020-03-14 10:41 | disposition home or self-care (01) | DRG 603 ==
LOC: ER 20:32 → SURS 03-09 03:46
PROVIDERS: Internal Medicine; Physician Assistant; ADMIT Internal Medicine
DX: L03.211 Cellulitis of face (principal); D50.9 Iron deficiency anemia, unspecified; E11.40 Type 2 diabetes mellitus with diabetic neuropathy, unspecified; E66.9 Obesity, unspecified; F41.9 Anxiety disorder, unspecified; I27.21 Secondary pulmonary arterial hypertension; K21.9 Gastro-esophageal reflux disease without esophagitis; I12.9 Hypertensive chronic kidney disease with stage 1 through stage 4 chronic kidney disease, or unspecified chronic kidney disease; E11.22 Type 2 diabetes mellitus with diabetic chronic kidney disease; N18.3 Chronic kidney disease, stage 3 (moderate); Z87.891 Personal history of nicotine dependence; J32.0 Chronic maxillary sinusitis
CPT/HCPCS: 36415; 70486; 80048; 80053; 82728; 82947; 83540; 83550; 83605; 85014; 85018; 85025; 85027; 87040; 94640; 94760; 96365; 96366; 96375; 99285-25; A9270-GY; J0295; J1650; J2543; J2916; J3010; J3370; J7030; J7040; J7050

== ENCOUNTER → 2020-12-04 | Outpatient (CLI) | payer MEDICARE, OTHER ==
[~2020-12-04] MED LIST changes: +DOXY100 PO
[2020-12-06 17:07] LABS: HPV 16 Negative (Negative); HPV 18 Negative (Negative); HPV OTHER HR TYPES Negative (Negative)
== END | disposition home or self-care (01) ==
LOC: LAB 18:09 → LAB SHORT 18:09
PROVIDERS: Nurse Practitioner Family
DX: Z01.419 Encounter for gynecological examination (general) (routine) without abnormal findings (principal)
CPT/HCPCS: 87624; G0123

== ENCOUNTER → 2021-02-05 | Outpatient (CLI) | payer MEDICARE, OTHER | LOC: LAB 12:40 → LAB SHORT 12:40 | DX: D22.5 Melanocytic nevi of trunk (principal) | CPT/HCPCS: 88305 ==

== ENCOUNTER 2022-05-11 15:18 | Emergency (ER) | payer MEDICARE, OTHER ==
[~2022-05-11] VITALS: Ht 175.3 cm; Wt 69.4 kg
[~2022-05-11 15:18] MED LIST changes: +AMBRISENTAN10 MG PO; +EPLERENONE PO; +TORSE20
== END 2022-05-11 17:17 | disposition home or self-care (01) ==
LOC: ER 15:18
DX: Z45.2 Encounter for adjustment and management of vascular access device (principal); Z48.00 Encounter for change or removal of nonsurgical wound dressing; E11.22 Type 2 diabetes mellitus with diabetic chronic kidney disease; I12.9 Hypertensive chronic kidney disease with stage 1 through stage 4 chronic kidney disease, or unspecified chronic kidney disease; N18.9 Chronic kidney disease, unspecified; Z91.041 Radiographic dye allergy status; Z88.2 Allergy status to sulfonamides; Z88.5 Allergy status to narcotic agent; Z88.8 Allergy status to other drugs, medicaments and biological substances; Z79.899 Other long term (current) drug therapy; Z79.84 Long term (current) use of oral hypoglycemic drugs
CPT/HCPCS: 99282

== ENCOUNTER → 2022-05-18 | Outpatient (CLI) | payer MEDICARE, OTHER ==
[2022-05-18 15:11] LABS: Percent Saturation 16.9 % (15.0-50.0)
== END | disposition home or self-care (01) ==
LOC: LAB 13:08 → LAB SHORT 13:08
PROVIDERS: Internal Medicine Hematology & Oncology
DX: E53.8 Deficiency of other specified B group vitamins (principal); E61.1 Iron deficiency
CPT/HCPCS: 82607; 82728; 82746; 83540; 83550

== ENCOUNTER 2023-04-04 10:03 | Emergency (ER) | payer MEDICARE, OTHER ==
[~2023-04-04] VITALS: Ht 175.3 cm; Wt 90.7 kg
[2023-04-04 10:44] VITALS: BP 162/77
== END 2023-04-04 12:38 | disposition home or self-care (01) ==
LOC: ER 10:03
DX: S50.11XA Contusion of right forearm, initial encounter (principal); I12.9 Hypertensive chronic kidney disease with stage 1 through stage 4 chronic kidney disease, or unspecified chronic kidney disease; E11.22 Type 2 diabetes mellitus with diabetic chronic kidney disease; N18.30 Chronic kidney disease, stage 3 unspecified; E11.40 Type 2 diabetes mellitus with diabetic neuropathy, unspecified; K21.9 Gastro-esophageal reflux disease without esophagitis; Z91.041 Radiographic dye allergy status; Z88.5 Allergy status to narcotic agent; Z88.8 Allergy status to other drugs, medicaments and biological substances; Z79.84 Long term (current) use of oral hypoglycemic drugs; Z79.899 Other long term (current) drug therapy; W18.30XA Fall on same level, unspecified, initial encounter
CPT/HCPCS: 73090; 99283-25

== ENCOUNTER 2024-01-03 13:50 | Emergency (ER) | payer MEDICARE ==
[~2024-01-03] VITALS: Ht 175.3 cm; Wt 93.0 kg
[2024-01-03 14:20] VITALS: BP 124/88
[2024-01-03] MEDS ORDERED: CRUTCH4 XX (15:33)
[2024-01-03] MEDS ORDERED: PredniSONE 20 MG Tab PO ONE (15:35)
[2024-01-03] MEDS ORDERED: Ketorolac Tromethamine 30mg Vial IM ONE (15:35)
[2024-01-03] MEDS ORDERED: Prednisone20 MG PO (15:36)
== END 2024-01-03 16:00 | disposition home or self-care (01) ==
LOC: ER 13:50
DX: M10.9 Gout, unspecified (principal); E11.40 Type 2 diabetes mellitus with diabetic neuropathy, unspecified; E11.22 Type 2 diabetes mellitus with diabetic chronic kidney disease; I12.9 Hypertensive chronic kidney disease with stage 1 through stage 4 chronic kidney disease, or unspecified chronic kidney disease; N18.30 Chronic kidney disease, stage 3 unspecified; Z88.5 Allergy status to narcotic agent; Z88.8 Allergy status to other drugs, medicaments and biological substances; Z91.041 Radiographic dye allergy status; Z79.899 Other long term (current) drug therapy; Z79.84 Long term (current) use of oral hypoglycemic drugs
CPT/HCPCS: 73630; 96372; 99283-25; J1885; J7512